=== PATIENT | female | born 1975 | race American Indian/Alaskan Native ===

== ENCOUNTER 2017-12-20 06:19 | Inpatient (IN) | payer BC ==
[2017-12-12 12:21] VITALS: BMI 33.6
[2017-12-20] MEDS ORDERED: Midazolam 2 MG/2 ML VIAL ONE (07:51)
[2017-12-20] MEDS ORDERED: Propofol 10 mg/ml Inj (20 ML) ONE (07:52)
[2017-12-20] MEDS ORDERED: Rocuronium 10 mg/ml (5 ml) ONE ×2 (07:55→09:41)
[2017-12-20] MEDS ORDERED: Succinylcholine Chloride 20 mg/ml Syr (5 ml) IV ONE (08:11)
[2017-12-20] MEDS: ceFAZolin IV 2 gm in Dextrose 2 GM/50 ML BAG IVPB ONE ×2 (08:38→09:25)
[2017-12-20] MEDS ORDERED: Bupivacaine-Epi 0.5%-1:200,000 PF Inj IJ ONE (09:00)
[2017-12-20] MEDS ORDERED: Vasopressin 20 Units/ml Inj ONE (09:36)
[2017-12-20] MEDS ORDERED: ePHEDrine 50 mg/ml Inj ONE (10:30)
[2017-12-20] MEDS ORDERED: Clindamycin 2% Vaginal Cream(40 gm) ONE (12:45)
[2017-12-20] MEDS ORDERED: Neostigmine Methylsulfate 3mg/3ml Syringe IV ONE (13:28)
--- NOTE | 2017-12-20 14:11 | PCM.SURG1 ---
Surgeon's Initial Post Op Note - Surgeon's Notes Surgeon: jeb bhagat md Housing Property Manager: carmela PIERRE Type of Anesthesia: General Endo, Local Pre-Operative Diagnosis: symptoatic fiborid uterus. chronic pelvic pain. Abnormal uterine bleeding. prolpase uterus. urgency incontinence Operative Findings: massive size uterus approx 25 weeks size, ovaries with simple cysts, left ovary with large simple cyst, normal bladder and ureters as per cystoscopy Post-Operative Diagnosis: symptoatic fiborid uterus. chronic pelvic pain. Abnormal uterine bleeding. prolpase uterus. urgency incontinence. Extensive adhesions bowel and peritoneal Operation Performed: multiport robotic hysterectomy bilateral salpingectomy > 250g. (myomectomy necesery to enable to hysterectomy due to masive size uterus , approx 25 weeks size). Enterolysis lysis of adhesions. Diagnostic cystoscopy Specimen/Specimens Removed: uterus, cervix tubes and myomas Estimated Blood Loss: EBL {In ML}: 20 Blood Products Given: N/A Drains Used: No Drains Date of Surgery/Procedure: 12/20/17 Time of Surgery/Procedure: 14:13
[2017-12-20] MEDS ORDERED: Morphine 4 MG/ML VIAL IVP PRN (14:13)
[2017-12-20] MEDS ORDERED: Oxycodone/Acetaminophen 5/325 mg Tab PO PRN (14:13)
[2017-12-20] MEDS ORDERED: Sodium Chloride 0.9% 1,000 ML IV SCH (14:15)
[2017-12-20] MEDS: HYDROmorphone 0.5 mg/0.5 ml ISec IVP PRN ×3 (14:26→15:00)
[2017-12-20] MEDS ORDERED: HYDROmorphone 0.5 mg/0.5 ml ISec ONE (14:43)
[2017-12-20] MEDS ORDERED: Sodium Chloride 0.9% 1,000 ML IV ONE (17:00)
[2017-12-20] MEDS: ceFAZolin 2 GM in Sodium Chloride 0.9% 100 ML IVPB SCH (17:25)
[2017-12-21 00:22] VITALS: TEMP 98.1; O2SAT 98
[2017-12-21] MEDS: ceFAZolin 2 GM in Sodium Chloride 0.9% 100 ML IVPB SCH ×2 (01:04→09:56)
[2017-12-21 08:13] LABS: HEMOGLOBIN 11.2 g/dL (11.0-16.0); MEAN CELL VOLUME 87.2 fL (81.0-99.0); MEAN CORPUSCULAR HEMOGLOBIN 29.4 pg (27.0-31.0); MEAN CORPUSCULAR HGB CONC 33.7 g/dL (33.0-37.0); MEAN PLATELET VOLUME 7.7 fL (7.2-11.7); RBC 3.82 Mil/uL (3.80-5.20); RED CELL DISTRIBUTION WIDTH 18.7 % (11.5-14.5)
[2017-12-21 08:19] LABS: WHITE BLOOD COUNT 11.8 K/uL (4.8-10.8)
[2017-12-21 08:32] LABS: BLOOD UREA NITROGEN 10 mg/dL (7-17); CALCIUM 8.5 mg/dl (8.6-10.4); GFR AFRICAN-AMERICAN > 60; GFR NON-AFRICAN AMERICAN > 60
--- NOTE | 2017-12-21 08:51 | CP.PCM.PN ---
Subjective - Date & Time of Evaluation Date of Evaluation: 12/21/17 Time of Evaluation: 08:51 - Subjective Subjective: Patient states she is sore, but pain is controlled. John out, has not voided. Good appetite, bari PO. Denies CP/SOB/dizziness. Objective - Vital Signs/Intake and Output Vital Signs (last 24 hours): Temp Pulse Resp BP Pulse Ox 98.1 F 100 H 20 110/67 98 12/20/17 20:00 12/20/17 20:00 12/20/17 20:00 12/20/17 20:00 12/20/17 20:00 - Medications Medications: Current Medications Sodium Chloride (Sodium Chloride 0.9%) 1,000 mls @ 125 mls/hr IV .Q8H CHRISTELLE Morphine Sulfate (Morphine) 4 mg IVP Q4H PRN PRN Reason: Pain, severe (8-10) Last Admin: 12/20/17 17:50 Dose: 4 mg Oxycodone/Acetaminophen (Percocet 5/325 Mg Tab) 2 tab PO Q4 PRN PRN Reason: Pain, moderate (4-7) Stop: 12/23/17 14:14 Last Admin: 12/20/17 23:36 Dose: 2 tab - Labs Labs: 12/21/17 08:07 12/21/17 08:07 - GI/Abdominal Exam Additional comments: abd miild distended, soft, mild tender. No erythema. Assessment and Plan (1) Fibroid Assessment & Plan: POD#1 s/p hysterectomy for large fibroid plan d/c home today after patient voids call for follow up appt in 2 weeks activity as tolerated rx percocet as per Dr. Jaimes d/w Dr. Jaimes, agrees with above K supp Status: Acute
[2017-12-21 08:58] VITALS: BP 93/77; PULSE 85; RESP 18
[2017-12-21] MEDS ORDERED: Potassium Chloride 20 mEq ER Tab PO ONE (09:00)
[2017-12-21] MEDS ORDERED: ceFAZolin IV 2 gm in Dextrose 2 GM/50 ML BAG IVPB SCH (10:00)
--- NOTE | 2017-12-28 07:23 | PCM.OP ---
Operative Report - Operative Report Date of Surgery/Procedure: 12/20/17 Time of Surgery/Procedure: 14:15 Surgeon: jeb bhagat md Spring Maker: Michelle Banda Anesthesia/Sedation: Gen. anesthesia with ET tube Pre-Operative Diagnosis: Symptomatic fibroid uterus. Chronic pelvic pain. Abnormal uterine bleeding. Prolapse uterus. Urgency incontinence Post-Operative Diagnosis: Symptomatic fibroid uterus. Chronic pelvic pain. Abnormal uterine bleeding. Prolapse uterus. Urgency incontinence. Bowel adhesions. Pelvic adhesive disease Indication for Surgery: Worsening chronic pain as well as urinary dysfun due to her massive size fibroid uterus. Operative Findings: massive size uterus, 25 weeks in size, significant pelvic adhesions disease, with severe intra-abdominal intrapelvic adhesions, bilateral ovaries with cysts LEFT ovary simple cyst. Procedure/Operation Description: 1. Robotic hysterectomy bilateral salpingectomy >250g. 2. Uterosacral ligament suspension colpopexy. 3. Enterolysis lysis of adhesions. 4. Diagnostic cystoscopy. 5. Laparotomy. DESCRIPTION OF OPERATION: This is a 42 years old female with symptomatic prolapse fibroid uterus, abnormal uterine bleeding, urinary incontinence and chronic pelvic. The patient completed an extensive preoperative workup, which included an ultrasound, as well as a Pap smear, chemistry and hematology studies. The patient reported these symptoms and problems as debilitating, and adversely affecting her quality of life. Following a period of failed conservative management, and patient decision was made to proceed with a more invasive approach to address the above noted problems. A decision was finally made to proceed with a total robotic assisted hysterectomy, bilateral salpingectomy, and vaginal vault suspension. A detailed description of this robotic procedure was given to the patient, all indications, risks, benefits and alternative treatments were reviewed, and printed material was also given to the patient regarding robotic surgery. The patient elected to proceed with the proposed procedure fully understanding all the risks and benefits associated with this proposed robotic procedure. After proper consent was obtained from the patient was taken to the operating room, proper patient identification was completed. She was placed in dorsal lithotomy position; general anesthesia was induced without difficulty. Her legs were placed in adjustable Edy stirrups. Careful attention was placed to avoid hyper-flexion or hyper-rotation of the lower extremities at the hip and the knee joints. She was prepped and draped appropriately for robotic assisted hysterectomy and colpo-suspension. John catheter was inserted under sterile conditions. A weighted speculum was placed in the vagina, anterior lip of cervix was grasped with a tenaculum, the cervix was mildly dilated and a V-care uterine manipulator was inserted through the cervix and secured. The weighted speculum and tenaculum were removed from the patient's vagina and attention was turned to the patient's abdomen. Local anesthetic solutions of 0.25% Marcaine with epinephrine were utilized to infiltrate the skin prior to all abdominal skin incisions. A total of 15 mL of 0.25% Marcaine was utilized throughout the procedure. While tenting the abdominal wall up, a Veress needle was inserted at a 45 degree angle. With CO2 insufflation, there was a drop in intraperitoneal pressure confirming correct placement. Insufflation was carried out to approximately 3 liters. A blunt robotic trocar and sleeve was introduced through the camera port in the midline, approximately 7 cm above the umbilicus. Then, using a robotic scope, initial survey of the patient's abdomen revealed a massive size fibroid uterus, approximately 25 weeks in size, severe intra-abdominal intrapelvic adhesions, pelvic adhesions, multiple cysts on both ovaries, predominant large cystic mass on the LEFT side. Under direct visualization, 3 additional robotic ports were utilized for this procedure. The first one, approximately 10 cm superior to the superior iliac crest on the RIGHT, a second port was approximately 10 cm superior to the superior iliac crest on the LEFT, and a third one was approximately 8 cm RIGHT lateral of the camera port in the midline. All robotic ports were approximately 8 mm in length. An assistant project manager port was inserted approximately 8 cm LEFT lateral of the camera port, and the versastep trocar and sleeve were introduced in the recommended fashion. A Veress and sheath were first introduced through a 1 cm incision, the Veress was removed and a trocar was introduced through the sheath and secured. Again, excellent visualization was noted confirming intraperitoneal placement. The placement of the trocars was all accomplished under careful and meticulous placement under direct visualization. Following the placement of all trocars, the da Alberto robotic system was docked in a parallel side docking method without difficulty after the patient was placed in moderate Trendelenburg position and small bowel had been swept away out of the pelvis. The ureter was positively identified. The following instruments were utilized for this procedure: the bipolar cautery device, a monopolar vaishali and finally a ProGrasp. Prior to the start of the hysterectomy, extensive lysis of adhesions was necessary; multiple loops of bowel were lysed off the anterior abdominal wall the pelvic sidewall. Sharp and blunt dissection was utilized to accomplish this lysis of adhesions and enterolysis. Due to the massive size of this uterus, and due to her extensive adhesions and difficulty to access the adnexa bilaterally, decision was made to complete myomectomy in order to access the uterine vessels. Dilute PITRESSIN solution was utilized to inject the capsules and base of all myomas. Approximately 40 units of PITRESSIN was diluted 100 cc of saline, utilizing a spinal needle which was inserted through the skin and guided to the robotic PK, a total of 100 cc of dilutes solution was injected to aid in hemostasis. Large elliptical incisions were made in the anterior posterior as well as fundal portion of the uterus, cluster of myomas were enucleated in place and the pelvic cavity for later extraction. Excellent hemostasis was noted. At this time it was possible to complete the hysterectomy robotically. Due to the significant intra-abdominal intrapelvic adhesions and the close proximity to the ureters, it was necessary to explore both ureters from the pelvic brim down to the uterocervical junction. The retroperitoneum was opened, both ureters were identified and traced all the way down towards the bladder, both ureters appeared uncompromised and peristalsing properly. Prior to the start of the hysterectomy, both ureters were visualized along the full course, peristalsis bilaterally. On the patient's right side, the utero-ovarian and the round ligaments were identified cauterized and transected, the broad ligament was divided all the way down to the utero cervical junction bladder flap was then created by transecting the visceroperitoneum over the bladder reflection. In a similar fashion, the left round ligament, utero-ovarian ligament and broad ligament were cauterized sealed and transected, taken down to the level of the cervical uterine junction. Uterine vessels on both sides were sealed and transected. The Uterosacral ligaments were sealed and transected. The monopolar vaishali and PK were utilized to complete the colpotomy incision around the care vaginal ring. Excellent hemostasis was noted. The uterus, cervix, multiple myomas from the myomectomy and fallopian tubes were delivered transvaginally through the colpotomy incision and sent to pathology for permanent analysis. The colpotomy incision was closed with 2-0 v LOC in a continuous fashion with excellent hemostasis. The vaginal vault suspension was achieved by suspending the vaginal cuff to the base of the uterosacral ligaments bilaterally. For uterosacral ligament suspension portion of the procedure, the ureters were once again identified to avoid possible compromise or kinking while suspending the vaginal vault. A 2-0 permanent suture material (Whiting-Austen) was utilized to suspend the uterosacral ligaments from the base to the vaginal vault cuff incision including both anterior and posterior aspect of the colpotomy incision. Utilizing a 3-0 Monocryl suture, the peritoneum over the colpotomy incision and uterosacral ligaments was re-approximated in a continuous fashion. The pelvis and abdomen were irrigated copiously and cleared of all clots and debris. FloSeal as well as Interceed was applied over the incision sites. Excellent hemostasis was once again noted. All robotic and laparoscopic instruments removed under direct visualization. The robotic arms were undocked , and a da Alberto robotic system was wheeled away from the patient's bedside. Both assistant project manager and camera ports were closed at the fascial layer utilizing a 0 Vicryl suture material in interrupted fashion. Pneumoperitoneum was reduced and all skin incisions were closed utilizing 4-0 Monocryl in a subcutaneous fashion. Dermabond was applied to all incisions. At the conclusion of this procedure, a diagnostic cystoscopy was completed. The John catheter was removed; the bladder was distended with approximately 350 cc of normal saline. A 17 Taiwanese 30 cystoscope was introduced through the urethra and a survey of the bladder anatomy was completed. The trigone, and the dome of the bladder appeared normal, both ureteral orifices appeared normal and were efluxing urine freely. The urethra appeared normal. A John catheter was reinserted. Vaginal packing was inserted to be removed the next morning. Patient emerged from general anesthesia without difficulty, and was taken to recovery room in stable condition. Prior to incision the patient received antibiotics, prior to closure sponge lap and needle counts were correct x2. Extremely difficult case due to massive size uterus and distorted pelvic anatomy, case required high degree of expertise. Estimated Blood Loss: 20 Blood Replaced: none Sponge/Instrument Count: count Correct x2 Drains: none Complications: none Specimen: uterus cervix tubes and myomas Discharge & Condition: Patient discharged home in stable condition
== END 2017-12-21 12:30 | disposition home or self-care (01) | DRG 743 ==
LOC: C.SDS 06:19 → C.9S 14:13 → C.4M 19:08
PROVIDERS: ADMIT Obstetrics & Gynecology; ATTEND Obstetrics & Gynecology
PROC: 0UT74ZZ Resection of Bilateral Fallopian Tubes, Percutaneous Endoscopic Approach (ICD-10-PCS; 2017-12-20)
PROC: 0DNW4ZZ Release Peritoneum, Percutaneous Endoscopic Approach (ICD-10-PCS; 2017-12-20)
PROC: 0USG4ZZ Reposition Vagina, Percutaneous Endoscopic Approach (ICD-10-PCS; 2017-12-20)
PROC: 8E0W4CZ Robotic Assisted Procedure of Trunk Region, Percutaneous Endoscopic Approach (ICD-10-PCS; 2017-12-20)
PROC: 0TJB8ZZ Inspection of Bladder, Via Natural or Artificial Opening Endoscopic (ICD-10-PCS; 2017-12-20)
PROC: 0UT94ZZ Resection of Uterus, Percutaneous Endoscopic Approach (ICD-10-PCS; principal; 2017-12-20 07:45)
DX: D25.9 Leiomyoma of uterus, unspecified (principal); G89.29 Other chronic pain; N73.6 Female pelvic peritoneal adhesions (postinfective); N93.8 Other specified abnormal uterine and vaginal bleeding; N81.4 Uterovaginal prolapse, unspecified; N39.41 Urge incontinence; N88.8 Other specified noninflammatory disorders of cervix uteri; R10.2 Pelvic and perineal pain